=== PATIENT | female | born 1930 | race Caucasian/White ===

== ENCOUNTER 2016-08-17 04:37 | Emergency (ER) | payer BC ==
[2016-08-17 04:52] VITALS: BP 132/80; PULSE 80; TEMP 97.5; BMI 27.4
[2016-08-17 05:02] LABS: BASOPHIL 0.6 % (0-2.0); EOSINOPHIL 7.2 % (0-4.5); MCH 29.4 pg (25.7-33.7); MCHC 32.6 g/dl (32.0-36.0); MEAN PLT VOLUME 8.3 fl (7.5-11.1); NEUTROPHILS 62.5 % (42.8-82.8); PLATELET COUNT 217 K/MM3 (134-434); RDW 14.4 % (11.6-15.6); WHITE BLOOD COUNT 7.4 K/mm3 (4.0-10.0)
[2016-08-17 05:15] LABS: INR 1.01 (0.82-1.09); PROTHROMBIN TIME (PATIENT) 11.1 SEC (9.98-11.88)
[2016-08-17 05:15] LABS: URINE APPEARANCE CLOUDY; URINE BILIRUBIN NEGATIVE (NEGATIVE); URINE COLOR LTYELLOW; URINE GLUCOSE (UA) NEGATIVE (NEGATIVE); URINE KETONE NEGATIVE (NEGATIVE); URINE NITRITE NEGATIVE (NEGATIVE); URINE PROTEIN NEGATIVE (NEGATIVE); URINE UROBILINOGEN NEGATIVE E.U./dl (0.2-1.0)
[2016-08-17 05:24] LABS: ALBUMIN 3.5 g/dl (3.4-5.0); ANION GAP 10 (8-16); BILIRUBIN,TOTAL 0.4 mg/dL (0.2-1.0); CO2 25 mmol/L (21-32); GLUCOSE,RANDOM 165 mg/dL (74-106); SGOT/AST 18 U/L (15-37); SGPT/ALT 18 U/L (12-78); TOT PROT 6.5 g/dl (6.4-8.2)
[2016-08-17 05:27] LABS: ALK PHOS 68 U/L (45-117); TROPONIN I < 0.02 ng/ml (0.00-0.05)
[2016-08-17 05:32] LABS: URINE BLOOD 1+ (NEGATIVE); URINE LEUK ESTERASE 3+ (NEGATIVE)
[2016-08-17 05:35] LABS: URINE RBC 18 /hpf (0-3); URINE WBC 432 /hpf (3-5); YEAST MANY
--- NOTE | 2016-08-17 06:00 | PDOC ---
History of Present Illness - General History Source: Patient, Family (son) Exam Limitations: No Limitations - History of Present Illness Initial Comments: 08/17/16 06:08 The patient is a 86 year old female with significant past medical history of CAD s/p stents x2, diabetes and asthma who presents to the ED for chest pain. Patient describes her chest pain as pressure-like sensation and son, at bedside , states he noted a rash on her back here in the ER, which he never saw before. Patient also reports she was recently diagnosed with UTI secondary to her partial uterine prolapse and was prescribed antibiotics, but was unable to waste picker the prescription. She is scheduled to visit an ID specialist. The patient denies fever, chills, diaphoresis, cough, SOB, and palpitations. The patient denies abdominal pain, nausea, vomiting, and diarrhea. Allergies: aspirin, penicillin, sulfur Social History: No alcohol, tobacco, or drug use reported. Past Surgical History: s/p cardiac stents x2, appendectomy PCP: Dr. Homero Ramirez <Radha Brice - Last Filed: 08/17/16 06:27> <Mere Cleveland - Last Filed: 08/18/16 06:09> - General Chief Complaint: Chest Pain Stated Complaint: CHEST PAIN Time Seen by Provider: 08/17/16 04:38 Past History <Radha Brice - Last Filed: 08/17/16 06:27> - Past Medical History Asthma: Yes Cardiac Disorders: Yes Diabetes: Yes Seizures: Yes - Surgical History Abdominal Surgery: Yes (hernia sx) Appendectomy: Yes Cardiac Surgery: Yes (stents x 2) - Psycho/Social/Smoking Cessation Hx Suicidal Ideation: No Smoking History: Never smoked Have you smoked in the past 12 months: No Information on smoking cessation initiated: No Hx Alcohol Use: No Drug/Substance Use Hx: No <Mere Cleveland - Last Filed: 08/18/16 06:09> - Past Medical History Allergies/Adverse Reactions: Allergies Allergy/AdvReac Type Severity Reaction Status Date / Time aspirin Allergy Hives Verified 08/17/16 04:43 Penicillins Allergy Verified 08/17/16 04:43 Sulfa (Sulfonamide Allergy Verified 08/17/16 04:43 Antibiotics) Home Medications: Ambulatory Orders Albuterol Sulfate [Proventil Hfa] 2 puff IH Q4H #1 01/31/14 Levothyroxine Sodium [Synthroid] 75 mcg PO DAILY tablet 01/31/14 Aspirin [ASA -] 81 mg PO DAILY 03/22/15 Glipizide/Metformin HCl [Glipizide-Metformin 2.5-500 mg] 1 each PO DAILY Amlodipine Besylate [Norvasc -] 2.5 mg PO DAILY 08/17/16 Fluticasone Propionate [Flovent Diskus] 100 mcg IH DAILY 08/17/16 Nitrofurantoin Monohyd/M-Cryst [Macrobid -] 100 mg PO BID #14 capsule 08/17/16 Valacyclovir HCl [Valtrex] 1,000 mg PO TID #21 tablet 08/17/16 Review of Systems - Review of Systems Able to Perform ROS?: Yes Comments:: 08/17/16 06:09 CONSTITUTIONAL: Absent: fever, no chills, no fatigue EYES: Absent: visual changes ENT: Absent: ear pain, no sore throat CARDIOVASCULAR: +chest pain Absent: no palpitations RESPIRATORY: Absent: cough, no SOB GI: Absent: abdominal pain, no nausea, no vomiting, no constipation, no diarrhea GENITOURINARY: Absent: dysuria, no frequency, no hematuria MUSCULOSKELETAL: Absent: back pain, no arthralgia, no myalgia SKIN: +rash on the back NEURO: Absent: headache <Abbe Briceta - Last Filed: 08/17/16 06:27> *Physical Exam - Vital Signs Last Vital Signs Temp Pulse Resp BP Pulse Ox 97.5 F L 80 18 132/80 94 L 08/17/16 04:43 08/17/16 04:43 08/17/16 04:43 08/17/16 04:43 08/17/16 04:43 - Physical Exam Comments: 08/17/16 06:09 GENERAL: Well-appearing, well-nourished. No apparent distress. HEENT: Normocephalic, atraumatic. PERRL, EOM intact. CARDIOVASCULAR: Normal S1, S2. Regular rate and rhythm. PULMONARY: Clear to auscultation bilaterally. ABDOMEN: Soft, non-distended, non-tender. MUSCULOSKELETAL: No CVA tenderness. EXTREMITIES: Normal ROM in all four extremities. No gross deformities. No edema. SKIN: Warm, dry. Shingles at the level of T2 and left chest that did not involve the nipple NEUROLOGICAL: No focal neurological deficits. <Radha Brice - Last Filed: 08/17/16 06:27> - Vital Signs Last Vital Signs Temp Pulse Resp BP Pulse Ox 97.5 F L 80 18 132/80 94 L 08/17/16 04:43 08/17/16 04:43 08/17/16 04:43 08/17/16 04:43 08/17/16 04:43 <Mere Cleveland - Last Filed: 08/18/16 06:09> Heart Score/ECG Review - ECG Impressions Comment:: 08/17/16 06:28 NSR @74bpm <Radha Brice - Last Filed: 08/17/16 06:27> ED Treatment Course - LABORATORY CBC & Chemistry Diagram: 08/17/16 04:52 08/17/16 04:52 - ADDITIONAL ORDERS Additional order review: Laboratory Results 08/17/16 08/17/16 08/17/16 05:03 04:52 04:52 INR 1.01 Sodium 141 Potassium 4.2 D Chloride 106 Carbon Dioxide 25 Anion Gap 10 BUN 26 H Creatinine 1.0 Creat Clearance w eGFR 52.45 Random Glucose 165 H D Calcium 9.0 Total Bilirubin 0.4 AST 18 D ALT 18 D Alkaline Phosphatase 68 Creatine Kinase 113 Troponin I < 0.02 Total Protein 6.5 Albumin 3.5 Urine Color Ltyellow Urine Appearance Cloudy Urine pH 6.0 Urine Protein Negative Urine Glucose (UA) Negative Urine Ketones Negative Urine Blood 1+ H Urine Nitrite Negative Urine Bilirubin Negative Urine Urobilinogen Negative Ur Leukocyte Esterase 3+ H D Urine RBC 18 Urine WBC 432 Ur Epithelial Cells Rare Urine Yeast Many 08/17/16 04:52 RBC 3.96 MCV 90.0 MCHC 32.6 RDW 14.4 MPV 8.3 Neutrophils % 62.5 Lymphocytes % 16.2 D Monocytes % 13.5 H Eosinophils % 7.2 H Basophils % 0.6 <Radha Brice - Last Filed: 08/17/16 06:27> - LABORATORY CBC & Chemistry Diagram: 08/17/16 04:52 08/17/16 04:52 - ADDITIONAL ORDERS Additional order review: Laboratory Results 08/17/16 08/17/16 08/17/16 05:03 04:52 04:52 INR 1.01 Sodium 141 Potassium 4.2 D Chloride 106 Carbon Dioxide 25 Anion Gap 10 BUN 26 H Creatinine 1.0 Creat Clearance w eGFR 52.45 Random Glucose 165 H D Calcium 9.0 Total Bilirubin 0.4 AST 18 D ALT 18 D Alkaline Phosphatase 68 Creatine Kinase 113 Troponin I < 0.02 Total Protein 6.5 Albumin 3.5 Urine Color Ltyellow Urine Appearance Cloudy Urine pH 6.0 Urine Protein Negative Urine Glucose (UA) Negative Urine Ketones Negative Urine Blood 1+ H Urine Nitrite Negative Urine Bilirubin Negative Urine Urobilinogen Negative Ur Leukocyte Esterase 3+ H D Urine RBC 18 Urine WBC 432 Ur Epithelial Cells Rare Urine Yeast Many 08/17/16 04:52 RBC 3.96 MCV 90.0 MCHC 32.6 RDW 14.4 MPV 8.3 Neutrophils % 62.5 Lymphocytes % 16.2 D Monocytes % 13.5 H Eosinophils % 7.2 H Basophils % 0.6 - RADIOLOGY Radiology Studies Ordered: Category Date Time Status CHEST X-RAY PORTABLE* [RAD] Stat Radiology 08/17/16 04:46 Taken <Mere Cleveland - Nikolas Filed: 08/18/16 06:09> Medical Decision Making - Medical Decision Making 08/18/16 05:39 Pt comes with left chest pain. She has shingles rash over her T2 left dermatome. This is the cause of her pain. Labs are normal; ekg unchanged. CXR normal. Pt will be treated with valtex. Pt is refusing to be teated with abx for her UTI, as she has chronic UTI with her uterine prolapse. She was seen at [facility] and she was given an antibiotic that was not working. She states that she was then seen by her PMD and an ID specialist who recommended fosfamycin abx, however her prescription plan is not paying for the fosfamycin powder. We called [facility], and they never did culture and sensitivity on the patient's urine sample. I wanted to give patient nitrofurantoin while patient is awaiting fosfamycin approval by her insurance co. Pt refused to take the nitrofurantoin here. She will follow with PMD for her UTI. prednisone and valtrex and analgeiscs for the shingles. <Mere Cleveland - Last Filed: 08/18/16 06:09> *DC/Admit/Observation/Transfer - Attestations Scribe Attestion: 08/17/16 06:09 Documentation prepared by Radha Brice, acting as medical staff physician for Mere Cleveland MD <Radha Brice - Last Filed: 08/17/16 06:27> - Discharge Dispostion Admit: No <Mere Cleveland - Last Filed: 08/18/16 06:09> Diagnosis at time of Disposition: Shingles, UTI (urinary tract infection) - Discharge Dispostion Disposition: HOME Condition at time of disposition: Stable - Prescriptions Prescriptions: Nitrofurantoin Monohyd/M-Cryst [Macrobid -] 100 mg PO BID #14 capsule Valacyclovir HCl [Valtrex] 1,000 mg PO TID #21 tablet - Referrals Referrals: Homero Ramirez [Primary Care Provider] - - Patient Instructions Printed Discharge Instructions: DI for Atypical Chest Pain, DI for Shingles
[2016-08-17] MEDS ORDERED: valACYclovir HCL 1000 MG TABLET PO ONE (06:03)
[2016-08-17] MEDS ORDERED: ACYCLOVIR 200 MG CAPSULE ONE (06:05)
[2016-08-17] MEDS ORDERED: NITROFURANTOIN MACROCRYSTAL 50 MG CAPSULE (FP) ONE (06:06)
[2016-08-17] MEDS ORDERED: NITROFURANTOIN MACROCRYSTAL 50 MG CAPSULE (FP) PO SCH (06:15)
--- NOTE | 2016-08-17 09:16 | EKG ---
Test Reason : Blood Pressure : / mmHG Vent. Rate : 074 BPM Atrial Rate : 074 BPM P-R Int : 184 ms QRS Dur : 120 ms QT Int : 436 ms P-R-T Axes : 096 067 054 degrees QTc Int : 483 ms NORMAL SINUS RHYTHM RIGHT BUNDLE BRANCH BLOCK ABNORMAL ECG WHEN COMPARED WITH ECG OF 22-MAR-2015 14:32, PREMATURE ATRIAL COMPLEXES ARE NO LONGER PRESENT RIGHT BUNDLE BRANCH BLOCK IS NOW PRESENT Confirmed by KWABENA MOTT, ITZEL ([id number]) on 08/17/2016 9:16:06 AM Referred By: Confirmed By:ITZEL YUAN MD
== END 2016-08-17 06:31 | disposition home or self-care (01) ==
LOC: JER 04:37
DX: B02.9 Zoster without complications (principal); N39.0 Urinary tract infection, site not specified; I25.10 Atherosclerotic heart disease of native coronary artery without angina pectoris; Z95.5 Presence of coronary angioplasty implant and graft; E11.9 Type 2 diabetes mellitus without complications; Z79.84 Long term (current) use of oral hypoglycemic drugs; J45.909 Unspecified asthma, uncomplicated; G40.909 Epilepsy, unspecified, not intractable, without status epilepticus
CPT/HCPCS: 36415; 71010-TC; 80053; 81003; 81015; 82550; 84484; 85025; 85610; 87086; 87186; 93005; 93010; 99283-25